=== PATIENT | male | born 2005 | race Caucasian/White ===

== ENCOUNTER 2024-04-10 21:55 | Emergency (ER) | payer BC, MEDICAID ==
[2024-04-10] MEDS: Iopamidol 755 Mg/ML 100 ML Bottle IV SCH (22:52)
[2024-04-10 22:53] LABS: BASOPHILS ABSOLUTE AUTO 0.1 x10-3/uL (0.0-0.3); BASOPHILS PERCENT AUTO 0.5 % (0.3-3.8); EOSINOPHILS ABSOLUTE AUTO 0.1 x10-3/uL (0.0-0.6); EOSINOPHILS PERCENT AUTO 0.6 % (0.1-6.8); HEMATOCRIT 39.5 % (38.3-50.1); HEMOGLOBIN 12.8 g/dL (12.9-17.7); LYMPHOCYTES ABSOLUTE AUTO 1.6 x10-3/uL (0.5-4.5); LYMPHOCYTES PERCENT AUTO 14.3 % (15.8-45.3); MEAN CORPUSCULAR HEMOGLOBIN 26.3 pg (27.0-33.3); MEAN CORPUSCULAR HGB CONC 32.5 g/dL (28.7-35.3); MEAN PLATELET VOLUME 6.7 fL (6.7-11.0); MONOCYTES ABSOLUTE AUTO 1.2 x10-3/uL (0.0-1.2); MONOCYTES PERCENT AUTO 10.8 % (5.5-15.2); NEUTROPHILS ABSOLUTE AUTO 8.2 x10-3/uL (1.7-6.9); NEUTROPHILS PERCENT AUTO 73.8 % (40.3-71.8); PLATELET COUNT,PLT 391 x10(3)uL (117-477); RED BLOOD CELL COUNT 4.88 x10(6)uL (3.90-5.90); RED CELL DISTRIBUTION WIDTH 13.6 % (12.4-15.0); WHITE BLOOD CELL COUNT,WBC 11.1 x10-3/uL (3.2-10.1)
[2024-04-10 22:59] LABS: BLOOD UREA NITROGEN,BUN 6 mg/dL (7-18); CALCIUM 8.7 mg/dL (8.6-10.2); CARBON DIOXIDE,CO2 27 mmol/L (21-32); CHLORIDE,CL 105 mmol/L (100-110); ESTIMATED GFR 111 mL/min (>60); GLUCOSE RANDOM 144 mg/dL (80-116); POTASSIUM,K 3.5 mmol/L (3.5-5.3); SODIUM,NA 140 mmol/L (135-145)
[2024-04-10] MEDS: cefTRIAXone 2 GM Vial IVPUSH ONE (23:30)
[2024-04-10] MEDS: Ketorolac 30 MG/ML SDV IVPUSH ONE (23:30)
== END 2024-04-11 00:02 | disposition home or self-care (01) ==
LOC: FB.ED 21:55
DX: L04.0 Acute lymphadenitis of face, head and neck (principal); Z79.899 Other long term (current) drug therapy; Z79.84 Long term (current) use of oral hypoglycemic drugs
CPT/HCPCS: 36415; 70491; 80048; 85025; 86308; 87651; 96374; 96375; 99284; J0696; J1885; Q9967; 99283